=== PATIENT | female | born 1940 ===

== ENCOUNTER 2017-04-30 18:13 | Emergency (ER) | payer SELFPAY ==
[~2017-04-30] VITALS: Ht 160 cm; Wt 64.9 kg
--- NOTE | 2017-04-30 18:27 | ER Report ---
History and Physical Time Seen By MD: 18:25 HPI/ROS CHIEF COMPLAINT: Dislocated right hip HISTORY OF PRESENT ILLNESS: 76-year-old female presents via wheelchair to the emergency department complaining of right hip dislocation. She is status post 3 surgeries an original total hip replacement and then 2 revisions. She last had her hip pop out 4 months ago in [place] and had to have a relocated. She is from [place], [place]. Consider hip easily dislocates most of the time. She is able to have her family members pull on it and it relocates. This last occurred 4 days ago. Patient notes moderate 3/10 pain. There appears to be internal rotation of her hip. REVIEW OF SYSTEMS: Respiratory: No cough, no dyspnea. Cardiovascular: No chest pain, no palpitations. Gastrointestinal: No vomiting, no abdominal pain. Musculoskeletal: No back pain. Allergies: Coded Allergies: No Known Drug Allergies (Unverified , 04/30/17) Home Meds Reported Medications Meclizine Hcl (MECLIZINE HCL) 12.5 Mg Tablet, 25 MG PO BID 04/30/17 Alprazolam (XANAX) 0.5 Mg Tablet, 0.25 TAB PO PRN, TAB 04/30/17 Prednisone (PREDNISONE) 20 Mg Tablet, 20 MG PO PRN, TAB 04/30/17 Prednisone (PREDNISONE) 20 Mg Tablet, 40 MG PO PRN, TAB 04/30/17 Pravastatin Sodium (PRAVACHOL) 20 Mg Tablet, 80 MG PO QDAY, TAB 04/30/17 Lisinopril (LISINOPRIL) 20 Mg Tablet, 25 MG PO QDAY, TAB 04/30/17 Losartan Potassium (LOSARTAN POTASSIUM) 50 Mg Tablet, 25 MG PO QDAY 04/30/17 Albuterol Sulfate (VENTOLIN HFA) 18 Gm Inh, 1-2 PUFF INH 3-4XD, INH 04/30/17 Fluticasone Prop 44 Mcg (FLOVENT HFA 44 MCG) 44 Mcg Inha, 44 MCG INH, INH 04/30/17 Reviewed Nurses Notes: Yes Old Medical Records Reviewed: Yes Constitutional Vital Sign - Last 24 Hours 04/30/17 04/30/17 04/30/17 04/30/17 18:21 18:23 18:30 18:35 Pulse 86 73 Resp 18 15 B/P (MAP) 193/122 (145) 193/122 173/90 (117) Pulse Ox 93 91 O2 Delivery Room Air 04/30/17 04/30/17 04/30/17 04/30/17 18:50 19:00 19:05 19:18 Pulse 79 ??? Resp 12 B/P (MAP) 178/105 (129) Pulse Ox 88 O2 Flow Rate 2.0 04/30/17 04/30/17 04/30/17 04/30/17 19:20 19:30 19:35 19:50 Pulse 72 62 65 Resp 15 15 14 B/P (MAP) 140/76 (97) Pulse Ox 94 04/30/17 04/30/17 04/30/17 04/30/17 20:00 20:05 20:10 20:13 Pulse 60 72 Resp 22 22 B/P (MAP) 142/67 (92) 141/110 (120) Physical Exam General Appearance: The patient is alert, has no immediate need for airway protection and no current signs of toxicity. Vital signs stable, mild distress Eyes: Pupils equal and round no injection. Respiratory: Chest is non tender, lungs are clear to auscultation. Cardiac: regular rate and rhythm Gastrointestinal: Abdomen is soft and non tender, no masses, bowel sounds normal. Musculoskeletal: Neck: Neck is supple and non tender. Extremities have full range of motion and are non tender. There is internal rotation and shortening of the right lower extremity. It is neurovascularly intact on exam. There is tenderness on the trochanteric area on palpation Skin: No rashes or lesions. DIFFERENTIAL DIAGNOSIS: After history and physical exam differential diagnosis was considered for dislocated hip, fractured hip, Medical Decision Making EKG/Imaging Imaging X-ray: Right hip, 2 views was obtained. I viewed the images myself on the PACS system. My interpretation of the images is: There appears to be displacement of the prosthetic head posteriorly. The radiologist interpretation had no clinically significant variation from this interpretation. X-ray: Right hip single view was obtained. I viewed the images myself on the PACS system. My interpretation of the images is: Prosthetic hip appears to be in correct alignment and proper placement.. The radiologist interpretation had no clinically significant variation from this interpretation. ED Course/Re-evaluation Clinical Indication for ER IV: IV Access ED Course Patient was admitted to an examination room. H&P was done. The differential diagnoses was considered. Patient with the appearance of dislocated hip. X- rays confirm a posterior dislocation. Patient was offered conscious sedation for reduction but declined. She has fentanyl on board. She wishes for me to proceed with attempted reduction at this time. Still benefits were discussed with the patient. Her leg was pulled in internal rotation and then flexed up to 90 with anterior traction. There was on a popping sensation, but the hip appeared to be reduced. Patient able to move her hip now in full range of motion. Internal/external rotation appear intact without discomfort. Postreduction film was performed and confirms apparent reduction. Right lower stomach. He is neurovascularly intact post procedure Procedure: Dislocation reduction. The right hip was reduced in the usual fashion without complications. Post reduction the patient's neurovascular exam is normal. Post reduction x-ray demonstrates reduction of the joint to the anatomic position. The procedure was performed by myself. Decision to Disposition Date: Apr 30, 2017 Decision to Disposition Time: 20:14 Depart Departure Latest Vital Signs Vital Signs Date Time Temp Pulse Resp B/P (MAP) Pulse Ox O2 Delivery O2 Flow Rate FiO2 04/30/17 20:13 141/110 (120) 04/30/17 20:10 72 22 04/30/17 19:20 94 04/30/17 19:18 2.0 04/30/17 18:23 Room Air Impression: Primary Impression: Dislocation of right hip Additional Impression: History of total right hip replacement Condition: Improved Disposition: HOME OR SELF-CARE Patient Instructions: Hip Dislocation (ED) Additional Instructions: Follow-up with your orthopedist back in [place] if you have any problems Problem Qualifiers Primary Impression: Dislocation of right hip Encounter type: initial encounter Qualified Codes: S73.004A - Unspecified dislocation of right hip, initial encounter AMY TYSON DO Apr 30, 2017 18:27
[2017-04-30] MEDS ORDERED: LISI20TA29 PO (18:40)
[2017-04-30] MEDS ORDERED: PRAV20TA65 PO (18:40)
[2017-04-30] MEDS ORDERED: ALPR-429 PO (18:40)
[2017-04-30] MEDS ORDERED: PRED20TA6 PO (18:40)
[2017-04-30] MEDS ORDERED: FLU44R INH (18:40)
[2017-04-30] MEDS ORDERED: MECL12.5 PO (18:40)
[2017-04-30] MEDS ORDERED: LOSA50TA72 PO (18:40)
[2017-04-30] MEDS ORDERED: ALB18R INH (18:40)
[2017-04-30] MEDS ORDERED: fentaNYL CITR 100 MCG/2 ML AMP IVP ONE (18:55)
[2017-04-30] MEDS ORDERED: ONDANSETRON 4 MG/2 ML VIAL IVP ONE (18:55)
--- NOTE | 2017-04-30 19:29 | RADIOLOGY IMAGING REPORT ---
FACILITY: [facility] - [place] PATIENT NAME: Nataliya Head : 1940 MR: [id number] V: [id number] EXAM DATE: ORDERING PHYSICIAN: MAY TYSON TECHNOLOGIST: Location: [facility] - [place] Patient: Nataliya Head : 1940 Visit/Account:[id number] Date of Sevice: 04/30/2017 HIP RIGHT Indication: Pelvic pain. Comparison: None Available Findings: AP view of the pelvis. AP and frog-leg view of the right hip. Bilateral hip arthroplasty. Posterior right hip dislocation. The left femoral head component is slightly more superior than expected suspicious for polyethylene w ear. Fused sacroiliac joints with pulse syndesmophytes in the lower lumbar spine suspicious for ankylosing spondylitis. No evidence of acute fracture. IMPRESSION: 1. Posterior right hip dislocation. 2. The left femoral head component is slightly more superior than expected suspicious for polyethylen e wear. 3. No evidence of acute fracture. 4. Fused sacroiliac joints with probable syndesmophytes in the lower lumbar spine suspicious for anky losing spondylitis. Report Dictated By: Ranulfo Almanzar MD at 04/30/2017 7:20 PM Report E-Signed By: Ranulfo Almanzar MD at 04/30/2017 7:26 PM [id number]
[2017-04-30 20:13] VITALS: BP 141/110
--- NOTE | 2017-04-30 20:24 | RADIOLOGY IMAGING REPORT ---
FACILITY: [facility] - [place] PATIENT NAME: Nataliya Head : 1940 MR: [id number] V: [id number] EXAM DATE: ORDERING PHYSICIAN: MAY TYSON TECHNOLOGIST: Location: [facility] - [place] Patient: Nataliya Head : 1940 Visit/Account:[id number] Date of Sevice: 04/30/2017 Examination: HIP RIGHT Comparison: Earlier the same day. History: Postreduction. Findings: Improved postreduction alignment of the right hip arthroplasty; alignment is now within nor mal limits on the AP projection. And left hip arthroplasty alignment is within normal limits. Extensive postoperative change along the right acetabulum. No acute pelvic ring fracture. Ankylosing spondylitis. No acute abnormality in the soft tissues. IMPRESSION: Improved postreduction alignment of the right hip arthroplasty. Report Dictated By: Keny Torres MD at 04/30/2017 8:18 PM Report E-Signed By: Keny Torres MD at 04/30/2017 8:20 PM [id number]
== END 2017-04-30 20:20 | disposition home or self-care (01) ==
LOC: ER 18:22
DX: S73.004A Unspecified dislocation of right hip, initial encounter (principal); Z96.641 Presence of right artificial hip joint
CPT/HCPCS: 27265; 73502; 96374; 96375; 99284; J2405; J3010